=== PATIENT | female | born 1960 | race Caucasian/White ===

== ENCOUNTER 2016-09-25 10:27 | Observation (INO) | payer OTHER ==
[~2016-09-25] VITALS: Ht 160 cm; Wt 78.0 kg
[2016-09-25 10:31] VITALS: BP 147/95; PULSE 94; RESP 18; O2SAT 99
--- NOTE | 2016-09-25 11:14 | ED.REPORT ---
HPI-Chest Pain 40 and Over Date of Service Sep 25, 2016 ED Provider: Ortiz Aguirre MD The patient is a 56 year old female w/ a hx of anxiety, depression, GERD, and high cholesterol who presents to the ED from c/o intermittent chest tightness for the past 2 days. The pain "comes and goes" in episodes lasting about an hour. She is asymptomatic at the ED and last reports pain a half hour ago. Nothing makes the pain better or worse. Associated symptoms include tightness in her neck, back pain and slight diaphoresis. The pt experienced similar symptoms 4 years ago at a stressful time in her life. A stress test did not show any acute findings and symptoms were attributed to anxiety. Pt denies SOB, nausea, fever, cough, and has not been sick recently. Her PCP is Dr. Debi Hanley at internal medicine. She is on atorvastatin, omeprazole and venlafaxine. Nursing Notes Stated Complaint: ABNORMAL HEART RATE Chief Complaint: Dysrhythmia/Cardiac Nursing Notes Reviewed: Yes Allergies: Coded Allergies: amoxicillin (Verified Allergy, Mild, N/V/D, 09/25/16) clavulanic acid (Verified Allergy, Mild, N/V/D, 09/25/16) erythromycin base (Verified Allergy, Mild, N/V/D, 09/25/16) Scheduled Atorvastatin (Lipitor) 20 Mg Tablet 20 MG PO DAILY Cetirizine HCl (24Hour Allergy) 10 Mg Tablet 10 MG PO DAILY Cholecalciferol (Vitamin D3) (Vitamin D3) 2,000 Unit Capsule 2,000 UNIT PO DAILY Multivitamin (Multivitamins) 1 Each Capsule 1 EACH PO DAILY Omeprazole (Omeprazole) 40 Mg Capsule. 40 MG PO DAILY Venlafaxine ER (Venlafaxine ER) 150 Mg Tab.er.24 150 MG PO DAILY General Time Seen by : 11:09 Chief Complaint Chest pressure Hx Obtained From: Patient Arrived By: Walk-in Sudden in Onset?: Yes Onset Occurred: 2 days ago Symptom Duration: Since onset Location: : Chest left Quality: Painful Severity: Current: No pain currently Severity: Maximum: Mild Recent Healthcare: Recent doctor visit Similar Sx Previous: Yes Past Medical History Past Medical History GERD anxiety depression Family History Mother had quadruple bypass 4 years ago Father from colon cancer Smoking History Former Smoker Social History Other Social History: Good social support, , Local resident Ambulatory Status Independent Review of Systems Constitutional: Denies: Fever Respiratory: Denies: Non-productive cough, Shortness of breath Cardiovascular: Reports: Chest pain ("tightness") GI: Denies: Nausea Musculoskeletal: Reports: Back pain, Neck pain Skin: Reports Diaphoresis Complete sys rev & neg: except as marked. Physical Exam Initial Vital Signs Vital Signs (First) Date Time Temp Pulse Resp B/P Pulse Ox O2 Delivery O2 Flow Rate FiO2 09/25/16 10:31 36.3 94 18 147/95 99 Room Air Initial VS: Reviewed General/Constitutional: Awake, Alert, No acute distress, Cooperative, Not toxic appearing Respiratory / Chest: Atraumatic, Breath sounds NL, Breath sounds = bilat, No respiratory distress Cardiovascular: Heart rate NL, Regular rhythm, Heart sounds NL, No gallop, No murmurs, No rubs Abdomen: Atraumatic, Soft, Non-tender Neck: Atraumatic, Supple Lower Extremity / Pelvis / MS: Atraumatic, Inspection NL, No deformity Skin: Atraumatic, Warm, Dry Upper Extremity / MS: Atraumatic, Inspection NL, No deformity Interpretation & Diagnostics Lab Results Interpretation Result Diagram: 09/25/16 1201 09/25/16 1201 Test 09/25/16 12:01 09/25/16 13:08 White Blood Count 5.8th/mm3 (3.8-10.1) Red Blood Count 4.29mil/mm3 (3.90-5.20) Hemoglobin 13.3g/dL (12.0-15.6) Hematocrit 38.1% (35.0-46.0) Mean Corpuscular Volume 88.8fL (81-100) Mean Corpuscular Hemoglobin 31.0pg (27.0-35.0) Mean Corpuscular Hemoglobin Concent 34.9% (32.0-37.0) Red Cell Distribution Width 12.6% (12.3-15.4) Platelet Count 228bil/L (150-400) Neutrophils (%) (Auto) 60.1% (40-74) Lymphocytes (%) (Auto) 27.6% (14-46) Monocytes (%) (Auto) 9.5% (4-12) Eosinophils (%) (Auto) 2.3% (0-5) Basophils (%) (Auto) 0.3% (0-3) Sodium Level 138mEq/L (134-144) Potassium Level 3.9mEq/L (3.5-5.2) Chloride Level 99mEq/L (97-108) Carbon Dioxide Level 22mmol/L (18-29) Blood Urea Nitrogen 13mg/dL (6-24) Creatinine 0.61mg/dL (0.57-1.00) Estimat Glomerular Filtration Rate 145mL/min (>59) Glucose Level 109mg/dL (60-99) Calcium Level 9.7mg/dL (8.5-10.1) Magnesium Level 1.7mg/dL (1.6-2.6) Total Bilirubin 0.7mg/dL (0.0-1.2) Aspartate Amino Transf (AST/SGOT) 37U/L (0-50) Alanine Aminotransferase (ALT/SGPT) 35U/L (0-32) Alkaline Phosphatase 87U/L (25-150) Total Protein 7.7g/dL (6.4-8.4) Albumin 4.3g/dL (3.4-5.0) Triglycerides Level 263mg/dL (0-149) Cholesterol Level 196mg/dL (100-199) LDL Cholesterol, Calculated 96.400mg/dL (0-99) VLDL Cholesterol 52.600mg/dL HDL Cholesterol 47mg/dL (>39) Cholesterol/HDL Ratio 4.17 (0.0-4.4) Hold Urine Received (Received) ECG Interpretation ECG Interpretation: Urgent Care slight anterior lateral ST depression Time: 10:00 Interpreted by: ED physician Normal ECG Interpretation: Normal rate (81), No acute ischemic changes ECG Interpretation: ST depression from Clinic at 1000 has resolved Normal ECG Interpretation: Normal sinus rhythm (rate 81), No acute ischemic changes X-Ray Chest Interpretation Chest Xray Interpretation: IMPRESSION: No acute cardiopulmonary disease. Dictated by: Sandro Mars M.D. on 09/25/2016 at 11:53 Approved by: Sandro Mars M.D. on 09/25/2016 at 11:53 View: Portable Interpretation / Wet Read by: Interpret - Radiologist Re-Eval/Medical Decision Med Decision/Clinical Course 56-year-old female with risk factors of elevated cholesterol and family history. Presenting today with chest pain, ECG at urgent care showed some ST depression anteriorly and laterally, these have now resolved. Initial troponin is negative. Pain-free at present. We have given her aspirin and topical nitrates. Will admit to the hospitalist service for formal rule out and hopefully provocative testing. Time of Eval: 13:17 Re-Evaluation/Progress Note: Pt rechecked. She is not currently experiencing any pain. Due to slight changes in UC EKG and ED EKG, plan to admit for further observation, aspirin and nitro paste. Pt and family understand and agree with plan. Consultation : Referral / Consult Name: Audi Johnson MD Consulted With: Hospitalist Call Returned at: 13:41 Reservations Specialist: Agrees with eval, Agrees with plan, Accepts admit Note: Case discussed. Dr. Johnson accepts admit. Counseled Regarding: Diagnosis, Lab results, Need for admission Discharge & Departure Primary Impression: Chest pain Chest pain type: unspecified Qualified Code: R07.9 - Chest pain, unspecified Disposition: ADMITTED TO HOSPITAL Discharge Condition All VS Reviewed: Yes Condition: Stable Referrals: Sarthak Gomez DO (PCP) Scribe Attestation Portion of this note were transcribed by Cee Catalan. I, Dr. Aguirre, personally performed the history, physical exam, and medical decision-making: I reviewed and confirmed the accuracy for the information in the transcribed note. Signed by: han Weber, 09/25/16 1400 copies to: Sarthak Gomez Donald L MD Sep 25, 2016 11:14 Cee Catalan Sep 25, 2016 11:29
--- NOTE | 2016-09-25 11:55 | DRSVH ---
PROCEDURE: X-RAY CHEST ONE VIEW, PORTABLE ([id number]) INDICATIONS: 56 year-old female with chest pain for 2 days. TECHNIQUE: One view of the chest was acquired. COMPARISON: None. FINDINGS: Surgical changes and devices: None. Lungs and pleura: No pleural effusions or pneumothorax. Lungs are clear. Mediastinum: Mediastinal contours appear normal. Heart size is normal. Bones and chest wall: No suspicious bony lesions. Overlying soft tissues appear unremarkable. IMPRESSION: No acute cardiopulmonary disease. Dictated by: Sandro Mars M.D. on 09/25/2016 at 11:53 Approved by: Sandro Mars M.D. on 09/25/2016 at 11:53
[2016-09-25 12:04] LABS: BASOPHILS % (AUTO) 0.3 % (0-3); EOSINOPHILS % (AUTO) 2.3 % (0-5); MONOCYTES % (AUTO) 9.5 % (4-12); Mean Corpuscular Volume 88.8 fL (81-100); NEUTROPHILS % (AUTO) 60.1 % (40-74); Platelet Count 228 bil/L (150-400)
[2016-09-25 12:34] LABS: TROPONIN T 0.01 ug/L (0.0-0.011)
[2016-09-25 12:45] LABS: Magnesium 1.7 mg/dL (1.6-2.6)
[2016-09-25] MEDS ORDERED: Nitroglycerin 2% 1 Gm Ointment TOPICAL SCH (13:20)
[2016-09-25 13:24] VITALS: BP 145/83; PULSE 95; RESP 18; O2SAT 100
[2016-09-25] MEDS ORDERED: CETI-343 PO (13:38)
[2016-09-25] MEDS ORDERED: VENL150T3 PO (13:38)
[2016-09-25] MEDS ORDERED: MULT1CAP33 PO (13:38)
[2016-09-25] MEDS ORDERED: ATOR20TA PO (13:38)
[2016-09-25] MEDS ORDERED: OMEP40CA36 PO (13:38)
[2016-09-25] MEDS ORDERED: CHOL200047 PO (13:38)
[2016-09-25] MEDS ORDERED: Ondansetron 2 mg/mL 2 mL Inj IVPUSH PRN (13:40)
[2016-09-25 14:34] VITALS: BP 140/78; PULSE 91; RESP 20; O2SAT 97
--- NOTE | 2016-09-25 15:00 | PCM.HPMED ---
Subjective Date of Service Sep 25, 2016 Primary Provider: Admitting Physician: Audi Johnson MD Primary Care Physician: Disha Corrales DO Attending Physician: Audi Johnson MD Chief Complaint: Chest pain History of Present Illness: 56-year-old female with hyperlipidemia, GERD, anxiety presenting with chest pain for several days. 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 But she was just feeling not well. Pain has been on and off intermittently at home, lasted 15-30 minutes at each episode spontaneously. Patient took Advil yesterday which did not necessarily reduce her pain. This morning, patient was also at work, noticed severe substernal chest pain, more pressure-like, also radiated to her back, patient was concerned as it continued from yesterday, went to the urgent care, EKG at urgent care did not show any ischemic changes but given persistent chest pain, sent to the emergency room. pt denied similar episode in the past, had stress test done 5yrs ago which was negative. didn't have cardiac cath. no Fhx of premature CAD. pt denied any chest trauma, didn't have similar with walking. 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 ROS: denied fever, chills, cough, sputum n/v/c/d, urinary complaints, no complaints. Review of Systems: Pertinent positives as noted in history of present illness. All other systems were reviewed and are negative Allergies Coded Allergies: amoxicillin (Verified Allergy, Mild, N/V/D, 09/25/16) clavulanic acid (Verified Allergy, Mild, N/V/D, 09/25/16) erythromycin base (Verified Allergy, Mild, N/V/D, 09/25/16) Home Medications Lipitor 20 mg daily Cetirizine 10 mg daily Vitamin D 3 2000units daily Multivitamin daily Omeprazole 40 mg daily Venlafaxine 150 mg daily PMH As described above in history of present illness Surgical History Tonsillectomy Tubal ligation Social History Hx Alcohol Use: Yes (3-4glasses of wine) Alcoholic Drinks Per Day: 3-4 glasses of wine each night Hx Substance Use: No Smoking Status: Former Smoker (quit 12yrs ago smoked 20yrs for 1ppd) Additional Information lives with Exam Vital Signs Vital Sign - Last Date Time Temp Pulse Resp B/P Pulse Ox O2 Delivery O2 Flow Rate FiO2 09/25/16 14:34 91 20 140/78 97 Room Air 09/25/16 10:31 36.3 Exam NAD, comfortably laying down on the bed no JVD, MMM, no LAD RRR, nl s1, s2 no mrg CTAB, no w,c. chest pain not reproducible by palpation S,ND,NT,normoactive BS+ warm, no edema, pulses 2/2 Lab and Diagnostics Result Diagram: 09/25/16 1201 09/25/16 1201 12-lead ECG NSR Assessment & Plan Acute, active chest pain/back pain, POA, non-anginal, HEART score:2 low risk, currently asymptomatic, EKG no ischemic chg, labs showed normal troponin, most likely related to anxiety d/o, possibly MSK or GI given hx of GERD. -telemetry, TTE, ordered treadmil stress test for tomorrow, regardless, pt can be discharged likely tomorrow. -s/p aspirin in ED, will get [id number], continue aspirin 81mg daily, get lipid panel, a1c -second trop, serial EKG if chest pain recurs Chronic, stable Anxiety disorder, continue Venlafaxine HLD, statin as above Dispo: Patient is admitted under observation status with expectation that she will be discharged within 24-48 hours, diet:general dvt ppx:LMWH Full code Time spent 65min Audi Johnson MD Sep 25, 2016 14:49
[2016-09-25 16:17] VITALS: PULSE 85
[2016-09-25 16:33] VITALS: BP 130/86; PULSE 93; RESP 16; O2SAT 96
--- NOTE | 2016-09-25 19:35 | NUR ---
Admit Pt arrived to [facility] 248-1 via stretcher at 1500. Pt ambulates w/o assist. Pt is a very pleasant and otherwise completely healthy woman, no current c/o cp. Pt is A&Ox3, oriented to room, call light and bathroom, will call with needs. Pt is comfortable with current plan to do stress test and echo in the AM.
[2016-09-25 21:00] VITALS: BP 117/79; PULSE 89; RESP 16; O2SAT 99
[2016-09-26 02:00] VITALS: BP 133/86; PULSE 84; RESP 16; O2SAT 97
[2016-09-26 03:12] VITALS: PULSE 83
--- NOTE | 2016-09-26 04:05 | NUR ---
PAIN/CARE Woke pt up at 0200 for VS. Pt stated intermittent mild achy diffuse pain in chest area, then stated "It could be psychosomatic." Pt did not request any medications for this. Pt denied having any other chest pain. NPO at midnight for cardiac work-up per orders. Continuing care.
[2016-09-26 06:15] VITALS: BP 135/78; PULSE 84; RESP 17; O2SAT 97
[2016-09-26] MEDS ORDERED: Pantoprazole 40 mg ER24 Tablet PO SCH (06:30)
[2016-09-26 07:19] VITALS: BP 138/81; PULSE 81; RESP 14; O2SAT 98
[2016-09-26 08:00] VITALS: PULSE 79
--- NOTE | 2016-09-26 08:21 | NUR ---
Stress test Patient left unit foe stress test 0821.
[2016-09-26] MEDS ORDERED: Venlafaxine XR 75 mg ER24 Capsule PO SCH (08:30)
--- NOTE | 2016-09-26 11:32 | NUR ---
Social Work: Screening Data: Pt is a 56 y/o female admitted for chest pain. Pt's PCP is Dr Corrales, pt's insurance is [facility]. EMR reviewed. Pt discussed in rounds. MD states pt has stress test today, pending this test, pt may d/c home per MD. No d/c planning needs anticipated at this time. SUPERINTENDENT CIRCUS will continue to follow if needs arise. Assessment: Pt who is independent at baseline. Plan: Pt will d/c home via POV when medically stable. No d/c planning needs anticipated at this time. SUPERINTENDENT CIRCUS will continue to follow if needs arise. MARBELLA Kaur
[2016-09-26 11:47] VITALS: BP 125/76; PULSE 90; RESP 15; O2SAT 96
--- NOTE | 2016-09-26 13:23 | NUR ---
Mentation Alert and oriented X3. Able to make needs known. Denies chest pain or chest discomfort. Stress test done, pending results. Tolerating PO fluids and meals at bed side. Ambulation independent with out any difficulty. denies difficulty breathing or shortness of breath. Call light with in reach for safety. Stable vital signs. Continue to monitor for chest pain, vital signs, and safety.
--- NOTE | 2016-09-26 13:45 | NUR ---
Echocardiogram Echocardiogram is in progress at bed side.
--- NOTE | 2016-09-26 13:57 | PCM.DIMED ---
Discharge Instructions Date of Service Sep 26, 2016 Dates of Hospitalization Sep 25, 2016 at 14:44 Discharge Diagnosis Discharge Diagnosis non-anginal chest pain, likely related to anxiety or musculoskeletal origin Diet Discharge Diet: No restrictions Activity Discharge Activity: No restrictions Call your provider Call your provider for: Chest pain Patient Instructions Patient Instructions You were hospitalized with chest pain. All of the workup didn't suggest that you have heart attack. Stress test also showed no evidence of heart attack. It' s possible that it's from your anxiety or related to muscle strain. Please note that if chest pain returns, Please consider taking tylenol to see if it helps. Please follow up with your primary doctor in 2weeks, please also follow up the result of echocardiogram. Follow-up Provider: Disha Corrales DO Follow-up with PCP in: 2 weeks Audi Johnson MD Sep 26, 2016 10:03
--- NOTE | 2016-09-26 14:01 | NUR ---
Social Work: Discharge Data: Pt is on day 1 of hospitalization. EMR reviewed. D/C orders are in. Pt discussed in rounds. MD states no d/c needs, disposition: home. No d/c planning needs identified at this time. RING MAKING MACHINE OPERATOR will continue to follow if needs arise. Assessment: Pt who is independent at baseline. Plan: Pt will d/c home via POV today. No d/c planning needs identified at this time. RING MAKING MACHINE OPERATOR will continue to follow if needs arise. MARBELLA Kaur
--- NOTE | 2016-09-26 14:34 | DRSVH ---
PROCEDURE PERFORMED: EXERCISE TREADMILL STRESS AND REST MYOCARDIAL PERFUSION IMAGING WITH GATING TO ASSESS EJECTION FRACTION AND REGIONAL WALL MOTION ABNORMALITY. RADIOPHARMACEUTICAL: Stress: 25.0 mCi of technetium-99 tetrofosmin. Rest: 8.92 mCi of technetium-9 9 tetrofosmin. INDICATIONS: The patient is a 56-year-old female with hyperlipidemia who presents with atypical ches t discomfort and normal troponins. COMPARISON: None. EXERCISE TREADMILL TESTING: The patient was able to exercise for 4 minutes and 59 seconds on a stand selma Baron protocol, suggesting moderately reduced exercise capacity with an HADLEY of +19%. She had a n ormal heart rate response achieving a maximum heart rate of 155 BPM (95% of her predicted maximum) an d a mild hypertensive blood pressure response with a resting blood pressure of 132/76, increasing to a maximum of 204/84. With exercise, she developed progressive dyspnea and at peak exercise noted mil d, dull chest discomfort. Her resting ECG is normal and there are no significant ST segment shifts t o suggest ischemia. There were no arrhythmias. FINDINGS: 1. Raw Data: There is fair myocardial tracer uptake although with breast shadows noted. There is n o obvious evidence for increased lung uptake or post-stress dilatation. There is a subdiaphragmatic "hot spot" adjacent to the inferior wall that appears to affect interpretation. 2. Quantitative Gated SPECT: Post-stress ejection fraction is estimated at 93%, although is likely an over-estimate because of small left ventricular volumes. There are no obvious focal wall motion a bnormalities and specifically, the distal anterolateral wall has brisk contractility. The resting eje ction fraction is estimated at 87% with an end diastolic volume of 32 mL. 3. Myocardial Perfusion Imaging: Post-stress supine images show a fairly normal myocardial perfusio n pattern although with slightly reduced counts in the distal anterolateral segment at the apex, whic h is consistent with breast attenuation artifact. This defect appears to improve, although does not completely resolve on the prone images. The resting images show a similar perfusion pattern with a s lightly more prominent defect than on the stress images. CONCLUSION: 1. Probable normal myocardial perfusion study. 2. There is a subtle fixed distal anterolateral apical defect that is actually worse on the resting images. While this persists to some degree on the prone images, it does improve, and given the absen ce of any wall motion abnormality in this distribution, this most likely reflects breast attenuation artifact although a previous nontransmural myocardial infarction cannot be entirely excluded. There is no evidence for significant myocardial ischemia. 3. High-normal left ventricular systolic function with relatively small left ventricular volumes and no obvious focal wall motion abnormality. 4. Moderately reduced exercise capacity with limiting exertional dyspnea and mild chest discomfort b ut no ECG evidence of ischemia. Dictated by: Jani Puga M.D. on 09/26/2016 at 11:55 Transcribed by: ZANE on 09/26/2016 at 17:34 Approved by: Jani Puga M.D. on 09/27/2016 at 16:00 cc: Dr. Disha Corrales
--- NOTE | 2016-09-26 15:29 | NUR ---
Discharge Timmy gardnerd hospitalist Dr. Johnson r/t stress test results. Response back with ok to go home. Reviewed discharge paper work and discharge instructions with patient and aware. Patient signed discharge paper work. Reviewed follow up with primary care doctor and follow up for echocardiogram results per hospitalist instructions. Peripheral IV discontinued to left arm with out difficulty. Denied pain or discomfort. Denied chest pain or discomfort. Patient left unit approx 1534 via wheel chair accompained by nursing staff with family.
--- NOTE | 2016-09-27 11:15 | PCM.DC.MED ---
Discharge Summary Date of Service Sep 26, 2016 Dates of Hospitalization Date of Hospital Admission Sep 25, 2016 at 14:44 Date of Discharge: Sep 26, 2016 Providers: Admitting Physician: Audi Johnson MD Primary Care Physician: Disha Corrales DO Attending Physician: Audi Johnson MD Diagnosis at Time of Discharge Diagnosis at Time of Discharge Acute dx non-anginal chest pain, likely related to anxiety or musculoskeletal origin Chronic dx Anxiety disorder, HLD, Procedures ECG 12 Lead NSR Other Diagnostics PROCEDURE PERFORMED: EXERCISE TREADMILL STRESS AND REST MYOCARDIAL PERFUSION IMAGING WITH GATING TO ASSESS EJECTION FRACTION AND REGIONAL WALL MOTION ABNORMALITY. RADIOPHARMACEUTICAL: Stress: 25.0 mCi of technetium-99 tetrofosmin. Rest: 8.92 mCi of technetium-99 tetrofosmin. INDICATIONS: The patient is a 56-year-old female with hyperlipidemia, who presents with atypical chest discomfort and normal troponins. COMPARISON: None. EXERCISE TREADMILL TESTING: The patient was able to exercise for 4 minutes and 59 seconds on a standard Baron protocol, suggesting moderately reduced exercise capacity with an HADLEY of +19%. She had a normal heart rate response achieving a maximum heart rate of 155 BPM (95% of her predicted maximum) and a mild hypertensive blood pressure response with a resting blood pressure of 132/76, increasing to a maximum of 204/84. With exercise, she developed progressive dyspnea and at peak exercise noted mild, dull chest discomfort. Her resting ECG is normal and there are no significant ST segment shifts to suggest ischemia. There were no arrhythmias. FINDINGS: 1. Raw Data: There is fair myocardial tracer uptake although with breast shadows noted. There is no obvious evidence for increased lung uptake or post- stress dilatation. There is a subdiaphragmatic "hot spot" adjacent to the inferior wall, that appears to affect interpretation. 2. Quantitative Gated SPECT: Post-stress ejection fraction is estimated at 93% , although is likely an over-estimate because of small left ventricular volumes. There are no obvious focal wall motion abnormalities. The resting ejection fraction is estimated at 87% with an end diastolic volume of 32 mL. 3. Myocardial Perfusion Imaging: Post-stress supine images show a fairly normal myocardial perfusion study with slightly reduced counts in the distal anterolateral segment at the apex, which could be consistent with breast attenuation artifact. This defect appears to improve, although does not completely resolve on the prone images. The resting images show a similar perfusion pattern with a slightly more prominent defect than on the stress images. CONCLUSION: 1. Probable normal myocardial perfusion study. 2. There is a subtle fixed distal anterolateral apical defect that is actually worse on the resting images. While this persists to some degree on the prone images, it does improve, and given the absence of any wall motion abnormality in this distribution, this most likely reflects breast attenuation artifact, although a previous nontransmural myocardial infarction cannot be entirely excluded. There is no evidence for significant myocardial ischemia. 3. High-normal left ventricular systolic function with relatively small left ventricular volumes and no obvious focal wall motion abnormality; specifically, the distal anterolateral wall has brisk contractility. 4. Moderately reduced exercise capacity with limiting exertional dyspnea and mild chest discomfort but no electrocardiogram evidence of ischemia. Dictated by: Jani Puga M.D. on 09/26/2016 at 11:55 Transcribed by: ZANE on 09/26/2016 at 17:34 cc: Dr. Disha Corrales Brief History HPI obtained on 09/25 56-year-old female with hyperlipidemia, GERD, anxiety presenting with chest pain for several days. 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 But she was just feeling not well. Pain has been on and off intermittently at home, lasted 15-30 minutes at each episode spontaneously. Patient took Advil yesterday which did not necessarily reduce her pain. This morning, patient was also at work, noticed severe substernal chest pain, more pressure-like, also radiated to her back, patient was concerned as it continued from yesterday, went to the urgent care, EKG at urgent care did not show any ischemic changes but given persistent chest pain, sent to the emergency room. pt denied similar episode in the past, had stress test done 5yrs ago which was negative. didn't have cardiac cath. no Fhx of premature CAD. pt denied any chest trauma, didn't have similar with walking. 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 ROS: denied fever, chills, cough, sputum n/v/c/d, urinary complaints, no complaints. Hospital Course Acute dx chest pain/back pain, It was thought to be non-anginal, HEART score:2 low risk,pt remained asymptomatic throughout hospitalization, EKG showed no ischemic chg, labs showed normal troponinx2, stress test showed normal study. it was most likely related to anxiety d/o, possibly MSK. Patient was discharged with stable condition. TTE was obtained by not read prior to d/c. Patient was asked to follow up the result with PCP. Chronic dx Anxiety disorder, continued Venlafaxin HLD, continued statin Exam Vital Signs (Last) Date Time Temp Pulse Resp B/P Pulse Ox O2 Delivery O2 Flow Rate FiO2 09/26/16 11:47 36.6 90 15 125/76 96 Room Air Exam NAD, comfortably laying down on the bed no JVD, MMM, no LAD RRR, nl s1, s2 no mrg CTAB, no w,c S,ND,NT,normoactive BS+ warm, no edema, pulses 2/2 Test 09/25/16 12:01 09/25/16 13:08 09/25/16 18:15 White Blood Count 5.8th/mm3 (3.8-10.1) Red Blood Count 4.29mil/mm3 (3.90-5.20) Hemoglobin 13.3g/dL (12.0-15.6) Hematocrit 38.1% (35.0-46.0) Mean Corpuscular Volume 88.8fL (81-100) Mean Corpuscular Hemoglobin 31.0pg (27.0-35.0) Mean Corpuscular Hemoglobin Concent 34.9% (32.0-37.0) Red Cell Distribution Width 12.6% (12.3-15.4) Platelet Count 228bil/L (150-400) Neutrophils (%) (Auto) 60.1% (40-74) Lymphocytes (%) (Auto) 27.6% (14-46) Monocytes (%) (Auto) 9.5% (4-12) Eosinophils (%) (Auto) 2.3% (0-5) Basophils (%) (Auto) 0.3% (0-3) Sodium Level 138mEq/L (134-144) Potassium Level 3.9mEq/L (3.5-5.2) Chloride Level 99mEq/L (97-108) Carbon Dioxide Level 22mmol/L (18-29) Blood Urea Nitrogen 13mg/dL (6-24) Creatinine 0.61mg/dL (0.57-1.00) Estimat Glomerular Filtration Rate 145mL/min (>59) Glucose Level 109mg/dL (60-99) Hemoglobin A1c 5.5% (4.8-5.6) Calcium Level 9.7mg/dL (8.5-10.1) Magnesium Level 1.7mg/dL (1.6-2.6) Total Bilirubin 0.7mg/dL (0.0-1.2) Aspartate Amino Transf (AST/SGOT) 37U/L (0-50) Alanine Aminotransferase (ALT/SGPT) 35U/L (0-32) Alkaline Phosphatase 87U/L (25-150) Total Protein 7.7g/dL (6.4-8.4) Albumin 4.3g/dL (3.4-5.0) Triglycerides Level 263mg/dL (0-149) Cholesterol Level 196mg/dL (100-199) LDL Cholesterol, Calculated 96.400mg/dL (0-99) VLDL Cholesterol 52.600mg/dL HDL Cholesterol 47mg/dL (>39) Cholesterol/HDL Ratio 4.17 (0.0-4.4) Hold Urine Received (Received) Troponin T < 0.010ug/L (0.0-0.011) Discharge Medications Discharge Medications Atorvastatin (Lipitor) 20 Mg Tablet 20 MG PO DAILY (Reported) Cetirizine HCl (24Hour Allergy) 10 Mg Tablet 10 MG PO DAILY (Reported) Cholecalciferol (Vitamin D3) (Vitamin D3) 2,000 Unit Capsule 2,000 UNIT PO DAILY (Reported) Multivitamin (Multivitamins) 1 Each Capsule 1 EACH PO DAILY (Reported) Omeprazole (Omeprazole) 40 Mg Capsule.dr 40 MG PO DAILY (Reported) Venlafaxine ER (Venlafaxine ER) 150 Mg Tab.er.24 150 MG PO DAILY (Reported) Followup Plan Disposition: home Discharge Diet: No restrictions Discharge Activity: No restrictions Patient Instructions You were hospitalized with chest pain. All of the workup didn't suggest that you have heart attack. Stress test also showed no evidence of heart attack. It' s possible that it's from your anxiety or related to muscle strain. Please note that if chest pain returns, Please consider taking tylenol to see if it helps. Please follow up with your primary doctor in 2weeks, please also follow up the result of echocardiogram. Follow-up Provider: Disha Corrales DO Follow-up with PCP in: 2 weeks Time spent 65min Audi Johnson MD Sep 27, 2016 11:15
--- NOTE | 2016-09-27 17:21 | DRSVH ---
[facility] [address] [place] [address] Echocardiogram Report Name: LAUREL YUEN SStudy Date: 09/26/2016 Height: 63 in Hospital Exam Location: [facility] Weight: 172 lb Gender: Female BSA: 1.8 m2 : 1960 Age: 56 yrs BP: 135/78 mmHg Reason For Study: Chest pain Performed By: Marlee Lucas Referring Physician: ROGELIO MUNROE Interpretation Summary The left ventricle is normal in size, wall thickness, and systolic function without any focal wall motion abnormalities. The ejection fraction is estimated to be 60-65%. The right ventricle is normal in size and function. The right ventricular systolic pressure is estimated at 21 mmHg assuming a right atrial pressure of 3 mm Hg. Valvular structure and function are within normal limits. There is no pericardial effusion. No previous study for comparison. Procedure: A two-dimensional transthoracic echocardiogram with color flow and Doppler was performed. The study quality was technically adequate. A contrast injection of Definity was performed to improve assessment of LV function. There is no prior echocardiogram noted for this patient. The patient was in normal sinus rhythm during the exam. Left Ventricle: The left ventricle is normal in size, wall thickness, and systolic function without any focal wall motion abnormalities. The ejection fraction is estimated to be 60-65%. Right Ventricle: The right ventricle is normal in size and function. Atria: The left atrial size is normal. Borderline right atrial enlargement. The interatrial septum is intact with no evidence for an atrial septal defect. Mitral Valve: The mitral valve is normal in structure and function. There is trace mitral regurgitation. Aortic Valve: The aortic valve is normal in structure and function. No aortic regurgitation is present. Tricuspid Valve: The tricuspid valve is normal in structure and function. There is trace tricuspid regurgitation. The right ventricular systolic pressure is estimated at 21 mmHg assuming a right atrial pressure of 3 mm Hg. Pulmonic Valve: The pulmonic valve is normal in structure and function. There is trace pulmonic regurgitation. Great Vessels: The aortic root is normal size. The ascending aorta is normal in size. The IVC is of normal diameter and collapses greater than 50% with a sniff. This suggests a low right atrial pressure of 3 mm Hg. Pericardium/ Pleura There is no pericardial effusion. There is an anterior echo-free space consistent with a fat pad. There is no pleural effusion. MMode/2D Measurements & Calculations LVIDd: 4.3 cm RA long axis LVOT diam LVIDs: 3.0 cm LA A2 area: 19.7 cm FS: 29.5 % LA A4 area: 12.8 cm RA area Ao root diam IVSd: 0.92 cm LA length (vol): 4.3 cm LVPWd: 0.80 cm LA vol: 49.9 ml : 12.2 cm asc Aorta LA vol index RA vol: 31.6 mlDiam: 3.0 cm RA : 27.5 ml/m2 : 17.4 mm2 LV hoover. diameter/BSA LV sys. diameter/BSA TAPSE: 2.4 cm (cm/m^2): 2.4 (cm/m^2): 1.7 Doppler Measurements & Calculations Ao V2 max: 125.5 cm/sec MV E max gómez MV E/A: 1.0 TR max gómez Ao max P.3 mmHg : 52.2 cm/sec : 217.5 cm/sec Ao mean P.6 mmHg MV A max gómez TR max PG LVOT Max Gómez : 51.2 cm/sec : 18.9 mmHg : 93.2 cm/sec PA V2 max MENDOZA(I,D): 2.1 cm : 69.2 cm/sec sev ratio: 0.69 PA mean PG : 1.1 mmHg MV dec time: 0.16 sec Ao V2 mean LV V1 max PG PA V2 mean : 90.6 cm/sec : 48.8 cm/sec Ao V2 VTI: 24.8 cm LV V1 VTI MENDOZA(V,D): 2.3 cm2 : 17.2 cm MENDOZA indexed to BSA (cm^2/m^2): 1.2 Reading Physician:05:20 PM
== END 2016-09-26 15:30 | disposition home or self-care (01) ==
LOC: SED 10:27 → MOC 14:44
PROVIDERS: ADMIT Internal Medicine; ATTEND Internal Medicine
DX: R07.89 Other chest pain (principal); F41.8 Other specified anxiety disorders; E78.5 Hyperlipidemia, unspecified; K21.9 Gastro-esophageal reflux disease without esophagitis; E78.00 Pure hypercholesterolemia, unspecified; Z88.8 Allergy status to other drugs, medicaments and biological substances; Z87.891 Personal history of nicotine dependence
CPT/HCPCS: 36415; 71010; 78452; 80053; 80061; 83036; 83735; 84484; 85025; 93005; 93017; 99285; A9502; C8929; G0378; J1650; Q9957